=== PATIENT | male | born 1970 | race Caucasian/White ===

== ENCOUNTER 2020-07-05 09:49 | Emergency (ER) | payer OTHER ==
[~2020-07-05] VITALS: Ht 177.8 cm; Wt 88.5 kg
[~2020-07-05 09:49] MED LIST: ASA81 MG; DIOVAN40 MG; GLUCOPHAGE XR500 MG; PLAVIX75 MG; VYTORIN 10-20 M1 TAB
[2020-07-05] MEDS ORDERED: ZETIA10 MG (10:22)
[2020-07-05] MEDS ORDERED: CRESTOR40 MG (10:24)
[2020-07-05] MEDS ORDERED: JENTADUETO XR1 EAC1 (10:24)
[2020-07-05] MEDS ORDERED: OMEGA 3 1,0001 EACH (10:25)
[2020-07-05] MEDS ORDERED: GLIPIZIDE XL10 MG (10:25)
[2020-07-05] MEDS ORDERED: ATACAND4 MG (10:25)
[2020-07-05] MEDS ORDERED: KETO10TA2 PO (12:11)
== END 2020-07-05 12:22 | disposition home or self-care (01) ==
LOC: ER 09:49
DX: S80.01XA Contusion of right knee, initial encounter (principal); W22.8XXA Striking against or struck by other objects, initial encounter; Y93.89 Activity, other specified; Y92.89 Other specified places as the place of occurrence of the external cause; Y99.8 Other external cause status

== ENCOUNTER 2022-08-17 14:43 | Emergency (ER) | payer OTHER ==
[~2022-08-17] VITALS: Ht 177.8 cm; Wt 81.6 kg
[~2022-08-17 14:43] MED LIST changes: +ATACAND4 MG; +CRESTOR40 MG; +GLIPIZIDE XL10 MG; +JENTADUETO XR1 EAC1; +KETO10TA2 PO; +OMEGA 3 1,0001 EACH; +ZETIA10 MG
== END 2022-08-17 18:06 | disposition home or self-care (01) ==
LOC: ER 14:43
DX: U07.1 COVID-19 (principal); Z98.61 Coronary angioplasty status; Z86.79 Personal history of other diseases of the circulatory system; Z83.3 Family history of diabetes mellitus; Z82.49 Family history of ischemic heart disease and other diseases of the circulatory system